=== PATIENT | female | born 1970 | race Caucasian/White ===

== ENCOUNTER 2018-04-26 12:09 | Emergency (ER) | payer BC ==
[~2018-04-26] VITALS: Ht 167.6 cm; Wt 91.7 kg
[~2018-04-26 12:09] MED LIST: CYCL-1 PO; METH4TAB3 PO; METH500T PO
[2018-04-26] MEDS ORDERED: normal saline 1000ML IV soln IVB ONE (12:30)
[2018-04-26] MEDS ORDERED: methylPREDNISolone sod succ 125mg/2ml vial IV ONE (12:45)
[2018-04-26 12:55] LABS: BASOPHILS % (AUTO) 0.3 % (0-1); EOSINOPHILS % (AUTO) 0.7 % (0-6); HEMATOCRIT 40.5 % (35.0-45.0); HEMOGLOBIN 13.7 g/dl (12.0-16.0); LYMPHOCYTES # (AUTO) 2.4 X10'3 (1.1-4.8); LYMPHOCYTES % (AUTO) 53.9 % (21-51); MEAN CORPUSCULAR HEMOGLOBIN 30.5 PG (27.0-31.0); MEAN CORPUSCULAR HGB CONC 33.7 % (33.0-36.5); MEAN CORPUSCULAR VOLUME 90.3 FL (78-98); MEAN PLATELET VOLUME 7.5 FL (7.4-10.4); MONOCYTES # (AUTO) 0.3 X10'3 (0-0.9); MONOCYTES % (AUTO) 6.2 % (2-12); NEUTROPHILS # (AUTO) 1.8 X10'3 (1.8-7.7); NEUTROPHILS % (AUTO) 38.9 % (42-75); PLATELET COUNT 202 X10'3 (140-440); RED BLOOD COUNT 4.49 X10'6 (4.20-5.60); RED CELL DISTRIBUTION WIDTH 13.5 % (11.5-14.5); WHITE BLOOD COUNT 4.5 X10'3 (4.5-11.0)
[2018-04-26 13:11] LABS: ALANINE AMINOTRANSFERASE 158 U/L (12-78); ALBUMIN 3.6 G/DL (3.4-5.0); ALBUMIN/GLOBULIN RATIO 0.8 (1.1-1.5); ALKALINE PHOSPHATASE 160 IU/L (46-116); ANION GAP 9 (8-16); ASPARTATE AMINO TRANSFERASE 122 U/L (10-37); BILIRUBIN,TOTAL 0.7 MG/DL (0.1-1.0); BLOOD UREA NITROGEN 11 MG/DL (7-18); BUN/CREATININE RATIO 12.5 (6.6-38.0); CALCIUM 9.2 MG/DL (8.5-10.1); CHLORIDE 102 MMOL/L (99-107); CREATININE 0.88 MG/DL (0.40-0.90); GLUCOSE 135 MG/DL (70-104); LIPASE 425 U/L (73-393); POTASSIUM 3.9 MMOL/L (3.5-5.1); SODIUM 140 MMOL/L (135-145); TOTAL CARBON DIOXIDE 29.4 MMOL/L (24-32); eGFR 68 ML/MIN
[2018-04-26 13:15] LABS: CLARITY,URINE CLEAR (Clear); COLOR,URINE YELLOW (Yellow); GLUCOSE, URINE NEGATIVE (Neg); KETONES,URINE TRACE mg/dl (Neg); LEUKOCYTE ESTERASE ,URINE TRACE (Neg); NITRITES, URINE NEGATIVE (Neg); OCCULT BLOOD,URINE NEGATIVE (Neg); PH,URINE 5.5 (4.8-8.0); PROTEIN,URINE TRACE mg/dl (Neg); UROBILINOGEN,URINE 0.2 E.U/dL (0.2-1.0)
[2018-04-26 13:26] LABS: UA COLLECTION TYPE CLN CATCH MIDSTREAM
[2018-04-26 13:27] LABS: BACTERIA,URINE FEW /HPF (Neg); RBC,URINE NONE SEEN /HPF (0-2); SQUAMOUS EPITHELIAL CELL,UR MODERATE /LPF (FEW); WBC,URINE 0-4 /HPF (0-4)
[2018-04-26 13:28] LABS: MUCUS STRANDS FEW /LPF (Neg)
[2018-04-26 13:36] LABS: D-DIMER 0.41 MG/L FEU (0-0.50)
[2018-04-26 13:57] LABS: TROPONIN I < 0.04 NG/ML (0.0-0.05)
[2018-04-26] MEDS ORDERED: METH4TAB81 PO (15:42)
[2018-04-26 16:00] VITALS: BP 161/86
== END 2018-04-26 16:02 | disposition home or self-care (01) ==
LOC: ER 12:09
DX: J98.01 Acute bronchospasm (principal); R10.13 Epigastric pain; R06.02 Shortness of breath; R05 Cough; R74.0 Nonspecific elevation of levels of transaminase and lactic acid dehydrogenase [LDH]; R74.8 Abnormal levels of other serum enzymes; Z98.890 Other specified postprocedural states; Z88.5 Allergy status to narcotic agent
CPT/HCPCS: 36415; 71046; 74176; 80053; 81001; 83690; 84484; 85025; 85379; 87088; 93005; 96361; 96374; 99284; J2930; J7030

== ENCOUNTER 2023-08-04 23:51 | Emergency (ER) | payer BC ==
[~2023-08-04] VITALS: Ht 167.6 cm; Wt 88.9 kg
[~2023-08-04 23:51] MED LIST changes: +METH4TAB81 PO
[2023-08-05 01:17] LABS: MEAN CORPUSCULAR HEMOGLOBIN 32.4 PG (27.0-31.0); MEAN PLATELET VOLUME 7.2 FL (7.4-10.4); WHITE BLOOD COUNT 4.4 X10'3 (4.5-11.0)
[2023-08-05 01:23] LABS: BASOPHILS % (AUTO) 0.7 % (0-1); HEMATOCRIT 39.6 % (35.0-45.0); LYMPHOCYTES # (AUTO) 2.1 X10'3 (1.1-4.8); LYMPHOCYTES % (AUTO) 47.1 % (21-51); MEAN CORPUSCULAR HGB CONC 35.4 g/dL (33.0-36.5); MEAN CORPUSCULAR VOLUME 91.5 FL (78-98); MONOCYTES # (AUTO) 0.4 X10'3 (0-0.9); MONOCYTES % (AUTO) 10.3 % (2-12); NEUTROPHILS # (AUTO) 1.8 X10'3 (1.8-7.7); NEUTROPHILS % (AUTO) 40.9 % (42-75); PLATELET COUNT 141 X10'3 (140-440); RED BLOOD COUNT 4.33 X10'6 (4.20-5.60); RED CELL DISTRIBUTION WIDTH 13.5 % (11.5-14.5)
[2023-08-05 01:27] LABS: ALBUMIN 3.6 G/DL (3.4-5.0); ALKALINE PHOSPHATASE 124 IU/L (46-116); ANION GAP 6 (8-16); ASPARTATE AMINO TRANSFERASE 41 U/L (10-37); BILIRUBIN,TOTAL 0.9 MG/DL (0.1-1.0); BLOOD UREA NITROGEN 8 MG/DL (7-18); BUN/CREATININE RATIO 9.5 (10.0-20.0); CALCIUM 9.1 MG/DL (8.5-10.1); CHLORIDE 99 MMOL/L (99-107); CREATININE 0.84 MG/DL (0.40-0.90); GLUCOSE 94 MG/DL (70-104); POTASSIUM 4.3 MMOL/L (3.5-5.1); SODIUM 135 MMOL/L (135-145); TOTAL CARBON DIOXIDE 29.9 MMOL/L (24-32); TOTAL PROTEIN 7.1 G/DL (6.4-8.2); eCRCL 71 ML/MIN; eGFR 70 ML/MIN
[2023-08-05 01:35] LABS: ALANINE AMINOTRANSFERASE 36 U/L (12-78)
[2023-08-05] MEDS: LIDOcaine 2% Viscous 15ml cup MM ONE ×2 (01:52→03:30)
[2023-08-05 02:28] LABS: BILIRUBIN,URINE NEGATIVE (Neg); CLARITY,URINE CLEAR (Clear); COLOR,URINE YELLOW (Yellow); GLUCOSE, URINE NEGATIVE (Neg); KETONES,URINE TRACE mg/dl (Neg); LEUKOCYTE ESTERASE ,URINE NEGATIVE (Neg); NITRITES, URINE NEGATIVE (Neg); OCCULT BLOOD,URINE NEGATIVE (Neg); PH,URINE 5.5 (4.8-8.0); PROTEIN,URINE NEGATIVE (Neg); UROBILINOGEN,URINE 0.2 E.U/dL (0.2-1.0)
[2023-08-05 02:30] LABS: UA COLLECTION TYPE CLN CATCH MIDSTREAM
[2023-08-05] MEDS: mineral oil 133ml enema RC ONE (02:51)
[2023-08-05] MEDS: ondansetron/PF 4mg/2ml inj IV ONE (03:55)
[2023-08-05] MEDS: normal saline 1000ml 1,000 ML IV ONE (03:56)
[2023-08-05] MEDS: fentaNYL/PF 50MCG/1 ML 2ML syringe IV ONE (03:56)
[2023-08-05] MEDS: dicyclomine 10mg/ml 2ml ampule IM ONE (03:56)
[2023-08-05 04:00] VITALS: TEMP 98.6
[2023-08-05] MEDS: LORazepam 2 mg/ml vial IV STA (04:27)
[2023-08-05] MEDS: HYDROmorphone 1 mg/ml syringe IV ONE (04:53)
[2023-08-05] MEDS: diazepam inj 5 MG/ML inj. IV ONE (07:04)
[2023-08-05] MEDS: magnesium citrate 296ml oral solution PO ONE (07:06)
[2023-08-05] MEDS: diatr meglu/diatrizoate 30ml oral sol.-(3 dose) bottle PO SCH (08:50)
[2023-08-05] MEDS ORDERED: sodium polystyrene sulfonate ENEMA 30gm/120ml RC ONE (08:55)
[2023-08-05] MEDS ORDERED: sodium polystyrene sulfonate 15gm/60ml oral suspension PR ONE (09:05)
[2023-08-05 10:32] VITALS: BP 151/115; PULSE 91; RESP 14; O2SAT 97
[2023-08-05] MEDS ORDERED: iohexol 300mg/ml 100ml inj. ONE (10:39)
[2023-08-05] MEDS: dexamethasone sod phosphate 10mg/ml inj IV STA (12:28)
[2023-08-05] MEDS: docusate sod 100mg capsule PO ONE (12:29)
== END 2023-08-05 13:13 | disposition home or self-care (01) ==
LOC: ER 23:51
DX: K59.00 Constipation, unspecified (principal); Z88.5 Allergy status to narcotic agent; Z79.899 Other long term (current) drug therapy; Z90.49 Acquired absence of other specified parts of digestive tract; Z98.890 Other specified postprocedural states
CPT/HCPCS: 36415; 74018; 74177; 80053; 81003; 85025; 96361; 96372; 96374; 96375; 99285; J0500; J1100; J1170; J2060; J2405; J3010; J3360; J3490; J7030; Q9963; Q9967

== ENCOUNTER 2024-01-01 01:41 | Emergency (ER) | payer BC, OTHER ==
[~2024-01-01] VITALS: Ht 167.6 cm; Wt 56.0 kg
--- NOTE | 2024-01-01 02:00 | NUR ---
MD AND THREAD CHECKER AWARE OF PT. CURRENTLY WAITING ON ROOM TO BE OPENED FOR PT. PT IN IMAGING. LABS DRAWN.
[2024-01-01 02:06] LABS: BASOPHILS % (AUTO) 0.3 % (0-1); EOSINOPHILS % (AUTO) 0.3 % (0-6); HEMATOCRIT 42.3 % (35.0-45.0); HEMOGLOBIN 14.7 g/dl (12.0-16.0); LYMPHOCYTES # (AUTO) 2.6 X10'3 (1.1-4.8); LYMPHOCYTES % (AUTO) 56.5 % (21-51); MEAN CORPUSCULAR HEMOGLOBIN 33.5 PG (27.0-31.0); MEAN CORPUSCULAR HGB CONC 34.8 g/dL (33.0-36.5); MEAN CORPUSCULAR VOLUME 96.3 FL (78-98); MEAN PLATELET VOLUME 7.8 FL (7.4-10.4); MONOCYTES # (AUTO) 0.5 X10'3 (0-0.9); MONOCYTES % (AUTO) 10.4 % (2-12); NEUTROPHILS # (AUTO) 1.5 X10'3 (1.8-7.7); NEUTROPHILS % (AUTO) 32.5 % (42-75); PLATELET COUNT 147 X10'3 (140-440); RED BLOOD COUNT 4.39 X10'6 (4.20-5.60); RED CELL DISTRIBUTION WIDTH 16.7 % (11.5-14.5); WHITE BLOOD COUNT 4.6 X10'3 (4.5-11.0)
[2024-01-01 02:23] LABS: ALANINE AMINOTRANSFERASE 49 U/L (12-78); ALBUMIN 4.1 G/DL (3.4-5.0); ALBUMIN/GLOBULIN RATIO 1.2 (1.1-1.5); ALKALINE PHOSPHATASE 120 IU/L (46-116); ANION GAP 17 (8-16); ASPARTATE AMINO TRANSFERASE 70 U/L (10-37); BLOOD UREA NITROGEN 17 MG/DL (7-18); BUN/CREATININE RATIO 20.2 (10.0-20.0); CALCIUM 10.8 MG/DL (8.5-10.1); CHLORIDE 99 MMOL/L (99-107); CREATININE 0.84 MG/DL (0.40-0.90); GLUCOSE 102 MG/DL (70-104); SODIUM 140 MMOL/L (135-145); TOTAL CARBON DIOXIDE 23.9 MMOL/L (24-32); TOTAL PROTEIN 7.4 G/DL (6.4-8.2); eCRCL 67 ML/MIN; eGFR 70 ML/MIN
[2024-01-01 02:31] LABS: LIPASE 35 U/L (16-77); PRO BRAIN NATRIURETIC PEPTIDE 201 PG/ML (0-125)
[2024-01-01] MEDS: normal saline 1000ML IV soln IVB ONE (02:32)
[2024-01-01 03:07] LABS: ANISOCYTOSIS 1+; PLATELET ESTIMATE NORMAL; SMUDGE CELLS 1+; TOTAL CELLS COUNTED 100
[2024-01-01 03:08] LABS: ELLIPTOCYTES FEW
[2024-01-01] MEDS: ondansetron/PF 4mg/2ml inj IV ONE (03:29)
[2024-01-01] MEDS ORDERED: iohexol 300mg/ml 100ml inj. ONE (03:54)
--- NOTE | 2024-01-01 04:17 | NUR ---
Pharmacy called for fluids with k+, informed pharmacy will bring to ED
[2024-01-01] MEDS: potassium 20mEq/D5LR 1,000 ML IV ONE (04:29)
--- NOTE | 2024-01-01 04:46 | NUR ---
spoke with md no need to bladder scan patient at this time
[2024-01-01] MEDS: ketorolac trometh 15mg/ml vial 15 MG/ML ML IV ONE (04:49)
[2024-01-01] MEDS ORDERED: TRAZ-251 PO (04:54)
[2024-01-01] MEDS ORDERED: ONDA-245 PO (05:59)
[2024-01-01] MEDS: magnesium sulf-water 2g/50mL 50 ML IV ONE (06:15)
[2024-01-01] MEDS: potassium Cl 20 mEq SR tablet PO STA (06:24)
--- NOTE | 2024-01-01 06:30 | NUR ---
report taken from Bedside nurse Annabelle.
--- NOTE | 2024-01-01 06:35 | NUR ---
Introduced self to patient.
[2024-01-01] MEDS: normal saline 1000ml 1,000 ML IV ONE (06:46)
--- NOTE | 2024-01-01 07:36 | NUR ---
Patient c/o abd pain and nauseal. MD notified.
[2024-01-01 07:39] LABS: ALANINE AMINOTRANSFERASE 35 U/L (12-78); ALBUMIN/GLOBULIN RATIO 1.1 (1.1-1.5); ALKALINE PHOSPHATASE 86 IU/L (46-116); ANION GAP 9 (8-16); ASPARTATE AMINO TRANSFERASE 53 U/L (10-37); BILIRUBIN,TOTAL 1.3 MG/DL (0.1-1.0); BLOOD UREA NITROGEN 13 MG/DL (7-18); BUN/CREATININE RATIO 18.1 (10.0-20.0); CALCIUM 8.8 MG/DL (8.5-10.1); CHLORIDE 105 MMOL/L (99-107); CREATININE 0.72 MG/DL (0.40-0.90); GLUCOSE 183 MG/DL (70-104); POTASSIUM 3.3 MMOL/L (3.5-5.1); SODIUM 141 MMOL/L (135-145); TOTAL CARBON DIOXIDE 26.8 MMOL/L (24-32); TOTAL PROTEIN 5.7 G/DL (6.4-8.2); eCRCL 78 ML/MIN; eGFR 84 ML/MIN
[2024-01-01] MEDS: diphenhydrAMINE 50 mg/ml inj IV ONE (07:47)
[2024-01-01] MEDS: metoclopramide 5 mg/ml inj IV ONE (07:48)
[2024-01-01 08:03] LABS: MAGNESIUM 1.6 MG/DL (1.5-2.4)
--- NOTE | 2024-01-01 08:11 | NUR ---
Partial dose of benadryl given per patient request.
[2024-01-01] MEDS: acetaminophen 1,000mg/100ml IV 100 ML IV STA (08:27)
[2024-01-01 08:32] VITALS: TEMP 98.1
--- NOTE | 2024-01-01 09:13 | NUR ---
changed linens and offered patient gown. provided warm blankets
[2024-01-01] MEDS ORDERED: POTA-207 PO (10:06)
[2024-01-01] MEDS: bisacodyl 10mg suppository rectal RC STA (10:08)
[2024-01-01] MEDS: propofol 10mg/ml 20ml vial IV ONE (10:08)
[2024-01-01] MEDS: lactulose 20gm/30ml cup PO ONE (10:22)
[2024-01-01] MEDS: piperacillin/tazo 3.375gm/50ml 50 ML IV ONE (10:23)
[2024-01-01] MEDS: magnesium hydroxide 30ml (MOM) UD suspension PO ONE (10:23)
[2024-01-01 10:56] VITALS: BP 123/77; PULSE 86; RESP 20; O2SAT 99
== END 2024-01-01 10:59 | disposition home or self-care (01) ==
LOC: ER 01:41
DX: K59.00 Constipation, unspecified (principal); R11.2 Nausea with vomiting, unspecified; E87.6 Hypokalemia; Z90.49 Acquired absence of other specified parts of digestive tract; Z98.891 History of uterine scar from previous surgery; Z88.5 Allergy status to narcotic agent; Z79.899 Other long term (current) drug therapy
CPT/HCPCS: 36415; 71045; 71260; 74177; 80053; 82948; 83690; 83735; 83880; 84145; 84484; 85007; 85025; 93005; 96361; 96365; 96366; 96367; 96375; 99285; J0131; J1200; J1885; J2405; J2543; J2704; J2765; J3480; J7030; Q9967; 94760; 99152; A4620